=== PATIENT | female | born 1980 | race Caucasian/White ===

== ENCOUNTER 2016-12-05 19:18 | Emergency (ER) | payer MEDICAID, OTHER ==
[~2016-12-05] VITALS: Ht 170.2 cm; Wt 87.1 kg
[2016-12-05 19:32] VITALS: BP 128/76
--- NOTE | 2016-12-05 21:08 | NUR ---
PT TAKEN TO BED 7
--- NOTE | 2016-12-05 21:08 | NUR ---
Bob huynh in [facility] - 12/05/16 at 2110 by JUAN A PT TAKEN TO BED 2
--- NOTE | 2016-12-05 21:15 | NUR ---
36Y/F PATIENT PRESENTS TO ED WITH C/O ABDOMINAL PAIN X 1 WK . 36/F BIB W/C/O RIGHT SIDED ABDOMINAL PAIN X1WEEK WITH NAUSEA. DENIES DIARRHEA; SKIN IS PINK/WARM/DRY; AAOX4 WITH EVEN AND STEADY GAIT; LUNGS CLEAR BL; HR EVEN AND REGULAR; PT DENIES ANY FEVER, CP, SOB, OR COUGH AT THIS TIME; PATIENT STATES PAIN OF 0/10 AT THIS TIME; VSS; PATIENT POSITIONED FOR COMFORT; HOB ELEVATED; BEDRAILS UP X2; BED DOWN. ER MD MADE AWARE OF PT STATUS.
--- NOTE | 2016-12-05 21:59 | NUR ---
Dr. Cartwright evaluating patient at bedside.
[2016-12-05] MEDS ORDERED: HYDROcodone/APAP 5/325 MG 1 TAB TAB PO ONE (22:25)
[2016-12-05] MEDS ORDERED: ONDANSETRON 4 MG ODT PO ONE (22:25)
--- NOTE | 2016-12-05 22:34 | NUR ---
Ultrasound at bedside.
[2016-12-06 00:44] VITALS: BP 122/80
--- NOTE | 2016-12-06 00:44 | NUR ---
Patient discharged with v/s stable. Written and verbal after care instructions given and explained. Patient alert, oriented and verbalized understanding of instructions. Ambulatory with steady gait. All questions addressed prior to discharge. ID band removed. Patient advised to follow up with PMD. Rx of TRAMADOL 50MG AND ONDANSETRON 4MG given. Patient educated on indication of medication including possible reaction and side effects. Opportunity to ask questions provided and answered.
== END 2016-12-06 00:44 | disposition home or self-care (01) ==
LOC: MED 19:19
DX: R10.11 Right upper quadrant pain (principal); R11.0 Nausea; R14.0 Abdominal distension (gaseous)
CPT/HCPCS: 36415; 76705; 80076; 81002; 81025; 99285; Q0092; S0119

== ENCOUNTER 2023-02-20 11:40 | Emergency (ER) | payer OTHER ==
[~2023-02-20] VITALS: Ht 170.2 cm; Wt 90.3 kg
[2023-02-20 11:53] VITALS: BP 132/70
--- NOTE | 2023-02-20 11:57 | NUR ---
SENT TO [facility]
[2023-02-20] MEDS ORDERED: LIDOCAINE MPF 1% 10 MG/ML VIAL INJ ONE (12:10)
[2023-02-20] MEDS ORDERED: CEPH-588 PO (12:14)
--- NOTE | 2023-02-20 12:30 | NUR ---
ASSUMED PATIENT CARE, NURSING ASSESSMENT COMPLETED. SEEN BY PROVIDER, MSE COMPLETED.
[2023-02-20 12:32] VITALS: BP 132/70
--- NOTE | 2023-02-20 12:32 | NUR ---
EARRING SUCCESFULY REMOVED FROM OUTER EAR BY PROVIDER.
== END 2023-02-20 12:32 | disposition home or self-care (01) ==
LOC: MED 11:40
DX: S00.451A Superficial foreign body of right ear, initial encounter (principal); Z41.3 Encounter for ear piercing; L08.9 Local infection of the skin and subcutaneous tissue, unspecified; H60.11 Cellulitis of right external ear; Z79.2 Long term (current) use of antibiotics; W45.8XXA Other foreign body or object entering through skin, initial encounter; Y92.89 Other specified places as the place of occurrence of the external cause; Y93.89 Activity, other specified; Y99.8 Other external cause status
CPT/HCPCS: 96372; 99284; J2001